=== PATIENT | female | born 1995 | race American Indian/Alaskan Native ===

== ENCOUNTER 2017-09-18 13:24 | Outpatient (CLI) | payer MEDICAID ==
[2017-09-18 13:50] VITALS: BP 115/55
[2017-09-18] MEDS ORDERED: LACTATED RINGERS 500 ML IV ONE (14:00)
[2017-09-18] MEDS ORDERED: DIFLUCAN PO ONE (14:00)
[2017-09-18 14:33] LABS: Amorphous Crystals,Urine Few; Bacteria,Urine 4+ /HPF (Negative); Bilirubin,Urine NEG (Negative); Blood,Urine SM (Negative); Color,Urine Yellow (Yellow); Mucus,Urine 3+ /HPF
== END 2017-09-18 14:27 | disposition home or self-care (01) ==
LOC: TRG 13:24
PROVIDERS: ATTEND Obstetrics & Gynecology
DX: O47.02 False labor before 37 completed weeks of gestation, second trimester (principal); Z3A.27 27 weeks gestation of pregnancy
CPT/HCPCS: 59025; 81001